=== PATIENT | male | born 1950 | race Caucasian/White ===

== ENCOUNTER 2022-02-16 06:20 | Outpatient (CLI) | payer MEDICARE, BC, SELFPAY ==
--- NOTE | 2022-02-16 07:54 | W.ANESCHARGE ---
Anesthesia Charges Start Date/Time Anesthesia Start Date: 02/16/22 Anesthesia Start Time: 07:20 Stop Date/Time Anesthesia Stop Date: 02/16/22 Anesthesia Stop Time: 07:50 Summary Emergency: No Extremes of Age: Over 69-CPT [id number]
== END 2022-02-16 06:21 | disposition home or self-care (01) ==
PROVIDERS: PCP Family Medicine; Visit Provider Internal Medicine
DX: Z12.11 Encounter for screening for malignant neoplasm of colon (principal)
CPT/HCPCS: 00812; 45378; 99100; J2704